=== PATIENT | male | born 1975 | race Caucasian/White ===

== ENCOUNTER 2024-12-24 15:53 | Outpatient (AMB) | payer OTHER, SELFPAY ==
--- NOTE | 2024-12-24 15:59 | A.OFFPC_ITS ---
Vital Signs 12/24/24 16:04 Height 5 ft 11.81 in Weight 241 lb 4 oz BMI 32.9 BP 182/89 H Blood Pressure Location Rt brachial Position Sitting Pulse 71 Pulse Source Pulse Oximeter Temp 97.7 F Temp Source Oral Pulse Oximetry (%) 99 Oxygen Delivery Method Room Air Intake Visit Reasons: [employer] WORK[employer]-blood pressure Accompanied by: Spouse Allergies No Known Allergies Allergy (Verified 12/24/24 15:59) Tobacco use date assessed: 12/24/24 Dental Screening Dental Screen Date: 12/24/24 Did you have a dental visit in the last 12 months?: Yes Was dental information given to patient?: Patient has dentist HPI HPI Comments History of Present Illness Details History of Present Illness The patient is a 49-year-old male presenting for management of hypertension and diabetes, and for preventative care measures. Essential Hypertension: - The patient reports elevated blood pre ssure, which runs in the family, and desires to manage it effectively. - He has been monitoring his blood press ure daily, although he was advised against taking it first thing in the morning by the ER. Hyperlipidemia: - The patient suspects elevated choleste rol levels, confirmed by a recent cholesterol reading of 252 mg/dL. Type 2 Diabetes Mellitus: - The patient was recently diagnosed wit h type 2 diabetes, with an A1c of 8.9%. - He was unaware of the significance of the A1c test and its implications for long-term glucose control. Obstructive Sleep Apnea: - Diagnosed in 2013, the patient uses a CPAP machine nightly, although it has not been serviced in over 10 years. Seasonal Affective Disorder: - The patient experiences seasonal depre ssion, particularly in winter, affecting his mood and activity levels. Carpal Tunnel Syndrome: - The patient has bilateral carpal tunne l syndrome, confirmed by EMG and NCV tests, and manages symptoms with wrist braces at night. Bursitis: - The patient reports knee pain consiste nt with bursitis, particularly when kneeling. Review of Systems - Cardiovascular: Reports elevated blood pressure. Denies chest pain or palpitations. - Endocrine: Reports elevated blood gluc ose levels. Denies polyuria or polydipsia. - Respiratory: Reports use of CPAP for s leep apnea. Denies dyspnea or cough. - Musculoskeletal: Reports knee pain whe n kneeling. Denies joint swelling or stiffness. - Neurological: Reports carpal tunnel sy ndrome symptoms at night. Denies headaches or dizziness. - Psychiatric: Reports seasonal depressi on. Denies anxiety or mood swings. 10-point ROS reviewed and negative excep t as noted in HPI Past Medical History - Hypertension - Hyperlipidemia - Type 2 Diabetes Mellitus - Obstructive Sleep Apnea - Seasonal Affective Disorder - Carpal Tunnel Syndrome - Bursitis Health Maintenance - Colon cancer screening with Cologuard recommended. - PSA testing due to family history of p rostate cancer. - Comprehensive metabolic panel, lipid p noble, and A1c testing planned. - Sleep study referral for CPAP machine evaluation. - Shingles vaccine recommended as age-ap propriate. Physical Exam General: Well-appearing, in no acute distress. Vital signs: Blood pressure elevated. HEENT: Normocephalic, atraumatic. PERRLA, EOMI. Conjunctiva clear, sclera anicteric. Oropharynx clear, mucous membranes moist. TMs intact bilaterally. Neck: Supple, no lymphadenopathy, no thyromegaly, no JVD or carotid bruits. Cardiovascular: RRR, normal S1/S2, no murmurs, rubs, or gallops. Peripheral pulses 2+ and symmetric. No edema. Respiratory: Lungs clear to auscultation bilaterally, no wheezes, rales, or rhonchi. Normal effort. Abdomen: Soft, non-tender, non-distended. Normoactive bowel sounds. No hepatosplenomegaly, no masses. MSK: Full range of motion, no joint swelling or deformity. Normal gait. Reports bursitis in the knee. Skin: Warm, dry, intact. No rashes, lesions, or pallor. Neuro: Alert and oriented x3. Cranial nerves II-XII intact. Strength 5/5 throughout. Sensation intact. Reflexes 2+ symmetric. Normal coordination and gait. Psych: Appropriate mood and affect. Normal judgment and insight. Reports seasonal depression. Plan 1. Essential Hypertension - Initiate treatment with amlodipine 10 mg daily to manage blood pressure. - Monitor blood pressure regularly and a djust medication as needed. 2. Hyperlipidemia - we will repeat labs and start medicati on was diagnosis is confirmed 3. Type 2 Diabetes Mellitus -will repeat labs and start medication o nce diagnosis is confirmed - Schedule follow-up every three months to monitor A1c and adjust treatment. 4. Obstructive Sleep Apnea - Refer to sleep medicine for CPAP machi ne evaluation and adjustment. 5. Seasonal Affective Disorder - Monitor mood changes and consider ligh t therapy or medication if symptoms worsen. 6. Carpal Tunnel Syndrome - Continue use of wrist braces at night to alleviate symptoms. 7. Bursitis - Advise on activity modification to red uce knee strain. Discussion Notes During the consultation, I discussed the management of hypertension, diabetes, and hyperlipidemia with the patient. We agreed on starting amlodipine for blood pressure control and metformin for diabetes management. I emphasized the importance of regular follow-ups and monitoring. We also discussed the need for a sleep study to evaluate the CPAP machine settings. Preventative measures, including colon cancer screening with Cologuard and PSA testing, were recommended. The patient was advised on lifestyle modifications and the importance of adherence to the treatment plan. Patient was informed and verbally consented to the use of an ambient scribefor clinic note documentation during this visit. Patient Instructions - Take amlodipine 10 mg daily as prescri bed. - Schedule and attend follow-up appointm ents every three months. - Complete the Cologuard test for colon cancer screening. - Monitor blood pressure regularly and r eport any significant changes. - Follow up with sleep medicine for CPAP evaluation. - Consider lifestyle changes to manage w eight and improve overall health. Total time spent caring for the patient today was 30 minutes. This includes time spent before the visit reviewing the chart, time spent documenting, and time spent reviewing laboratory results, diagnostic imaging, medications, performing a medically necessary evaluation, counseling on diagnoses, care coordination, ordering appropriate tests, ordering appropriate medications, review of tests performed by other providers, reporting test results with the patient. [facility] Medical History (Updated 12/24/24 @ 16:34 by To Tierney MD) Encounter for screening, unspecified Obstructive sleep apnea Obesity, class 1 Family History (Updated 12/24/24 @ 16:08 by Riya Shahid CMA) Mother Thyroid disease Afib Father HTN (hypertension) Hypercholesteremia Prostate cancer Social History Housing: House Patient Tobacco Use Status: Never used Tobacco service: No Current occupational status: employed Cognitive needs: No Hearing needs: No Vision needs: Yes (rx glasses) Questionnaire PHQ-9 Over the last 2 weeks, how often have you been bothered by any of the following problems? 1. Little interest or pleasure in doing things: not at all 2. Feeling down, depressed, or hopeless: not at all 3. Trouble falling or staying asleep, or sleeping too much: not at all 4. Feeling tired or having little energy: not at all 5. Poor appetite or overeating: not at all 6. Feeling bad about yourself - or that you are a failure or have let yourself or your family down: not at all 7. Trouble concentrating on things, such as reading the newspaper or watching television: not at all 8. Moving or speaking so slowly that other people could have noticed. Or the opposite - being so fidgety or restless that you have been moving around a lot more than usual: not at all 9. Thoughts that you would be better off or of hurting yourself in some way: not at all Total score: 0 Source: Developed by Drs. Kishan Lange, Sarah Burton, Maximiliano Casillas and colleagues, with an educational linda from [employer]. Thrive Questionnaire Date Thrive assessed: 12/24/24 I am a: Patient What is your living situation today?: I have a steady place to live Within the past 12 months, did the food you bought not last and you didn't have the money to get more?: Never true Within the past 12 months, did you worry whether your food would run out before you got money to buy more?: Never true Do you have trouble paying for medicines?: No Do you have trouble getting transportation to medical appointments?: No Do you have trouble paying your heating and electricity bill?: No Do you have trouble taking care of your child, family member or friend?: No Do you have trouble with day-to-day activities such as bathing, preparing meals, shopping, managing finances, etc.?: No Are you currently unemployed and looking for a job?: No Are you interested in more education?: No Please select the resources that you would like help with: None Currently or been in a relationship where the following occur: No concerns reported THRIVE Score: 0 AUDIT C Alcohol Use Questionnaire (AUDIT-C) 1. How often do you have a drink containing alcohol?: 2-4 times a month 2. How many drinks containing alcohol do you have on a typical day when you are drinking?: 1 or 2 3. How often do you have six or more drinks on one occasion?: Less than monthly Total Score: 3 MICHAEL-7 AMB Questionnaire MICHAEL-7 Date MICHAEL - 7 assessed: 12/24/24 Feeling nervous, anxious, or on edge: 1 = Several days Not being able to stop or control worryin = Not at all Worrying too much about different things: 1 = Several days Trouble relaxin = Several days Being so restless that it is hard to sit still: 0 = Not at all Becoming easily annoyed or irritable: 1 = Several days Feeling afraid as if something awful might happen: 0 = Not at all Total MICHAEL-7 score (0-4 normal; 5-9 mild; 10-14 moderate; 15-21 severe): 4 Source: Developed by Drs. Kishan Lange, Sarah Burton, Maximiliano Casillas and colleagues, with an educational linda from [employer]. Physical exam (Primary Care) Vital Signs: Last Vital Signs Temp 97.7 F 12/24/24 16:04 Pulse 71 12/24/24 16:04 BP 182/89 H 12/24/24 16:04 Pulse Ox 99 12/24/24 16:04 Oxygen Delivery Method Room Air 12/24/24 16:04 BMI result Body Mass Index 32.9 Tobacco/Smoking Status: Tobacco use Status Tobacco use date assessed 12/24/24 12/24/24 16:02 Patient Tobacco Use Status Never used Tobacco 12/24/24 16:02 PHQ-9: PHQ-9 Score PHQ-9: Total score 0 12/24/24 16:02 Thrive Assessment: Date of Thrive Assessment Date Thrive assessed 12/24/24 12/24/24 16:02 Currently or been in a relationship where the following occur: No concerns reported Coding Level of Care Code New Pt Level 4 (64124) Diagnoses Obstructive sleep apnea G47.33 Essential hypertension I10 Hyperlipidemia E78.5 Diabetes type 2 E11.9 Seasonal affective disorder F33.8 Carpal tunnel syndrome G56.00 Bursitis of both knees M70.51; M70.52 Encounter for colorectal cancer screening Z12.11; Z12.12 Assessment & Plan Assessment & Plan (1) Obstructive sleep apnea: Code(s): G47.33 - Obstructive sleep apnea (adult) (pediatric) Category: Medical (2) Essential hypertension: Code(s): I10 - Essential (primary) hypertension (3) Hyperlipidemia: Code(s): E78.5 - Hyperlipidemia, unspecified (4) Diabetes type 2: Code(s): E11.9 - Type 2 diabetes mellitus without complications (5) Seasonal affective disorder: Code(s): F33.8 - Other recurrent depressive disorders (6) Carpal tunnel syndrome: Code(s): G56.00 - Carpal tunnel syndrome, unspecified upper limb (7) Bursitis of both knees: Code(s): M70.51 - Other bursitis of knee, right knee; M70.52 - Other bursitis of knee, left knee (8) Encounter for colorectal cancer screening: Code(s): Z12.11 - Encounter for screening for malignant neoplasm of colon; Z12.12 - Encounter for screening for malignant neoplasm of rectum Plan Orders: Orders Hemoglobin A1c Today Z13.9 - Encounter for screening, unspecified Hepatitis B Surface Antigen Today Z13.9 - Encounter for screening, unspecified Hepatitis C Antibody Today Z13.9 - Encounter for screening, unspecified Hepatitis C Antibody Reflex Today Z13.9 - Encounter for screening, unspecified HIV Ab/Ag Today Z13.9 - Encounter for screening, unspecified Magnesium Today Z13.9 - Encounter for screening, unspecified Vitamin B12 and Folate Today Z13.9 - Encounter for screening, unspecified Complete Blood Count Auto Diff Today Z13.9 - Encounter for screening, unspecified Comprehensive Met. Panel Today Z13.9 - Encounter for screening, unspecified Hepatitis B Surface Antibody Today Z13.9 - Encounter for screening, unspecified Lipid Panel Today Z13.9 - Encounter for screening, unspecified TSH reflex Free T4 Today Z13.9 - Encounter for screening, unspecified UA CC w/rflx Micro + Cult Today Z13.9 - Encounter for screening, unspecified Vitamin D 1,25 dihydroxy Today Z13.9 - Encounter for screening, unspecified Referrals Sleep Medicine Referral G47.33 - Obstructive sleep apnea (adult) (pediatric), Z13.9 - Encounter for screening, unspecified Cologuard Test Z12.11 - Encounter for screening for malignant neoplasm of colon, Z12.12 - Encounter for screening for malignant neoplasm of rectum, Z13.9 - Encounter for screening, unspecified Medications: New amlodipine 10 mg PO DAILY 90 tabs 0RF
[2024-12-24 16:04] VITALS: BP 182/89; PULSE 71; TEMP 36.5; O2SAT 99; BMI 32.9
== END 2024-12-24 16:44 | disposition home or self-care (01) ==
LOC: HO.HMCFMS 15:54
PROVIDERS: Visit Provider Student in an Organized Health Care Education/Training Program
DX: G47.33 Obstructive sleep apnea (adult) (pediatric) (principal); I10 Essential (primary) hypertension; E78.5 Hyperlipidemia, unspecified; E11.9 Type 2 diabetes mellitus without complications; F33.8 Other recurrent depressive disorders; G56.00 Carpal tunnel syndrome, unspecified upper limb; M70.51 Other bursitis of knee, right knee; M70.52 Other bursitis of knee, left knee; Z12.11 Encounter for screening for malignant neoplasm of colon; Z12.12 Encounter for screening for malignant neoplasm of rectum

== ENCOUNTER 2025-01-01 07:48 | Outpatient (REF) | payer OTHER, SELFPAY ==
--- OUTSIDE RECORDS SUMMARY | 2025-01-01 07:50 | XMS_ITS | Clinical Summary ---
Author Organization [facility] [place] [address] Care Team Providers Care Shipper Name Role Phone Unavailable Primary Care Provider Unavailabl e Encounters Date Type Department Care Team Description 11/14/2024 Interpretation Only [address] [id number] Unknown from Last 3 Months Social History Tobacco Use Types Packs/Day Years Used Date Smoking Tobacco: Never Assessed Sex and Gender Information Value Date Recorded Sex Assigned at Not on file Legal Sex Male 11:13 AM EDT Gender Identity Not on file Sexual Orientation Not on file Plan of Treatment Health Maintenance Due Date Last Done Comments CT Colonography 1974 Colonoscopy 1974 Colorectal Cancer Screening 1974 FIT DNA 1974 FIT 1974 Sigmoidoscopy (10 year) with FIT yearly 1974 Sigmoidoscopy 1974 HIV screen 01/04/1992 Hepatitis C Screening 01/04/1992 Lipid Screening 01/04/1992 Hepatitis B vaccine (0-59 yrs) and Risk (1) 1993 Tetanus/Diphtheria/Pertussis Vaccines (1 - Tdap) 01/03 Pneumoccocal Vaccine: 50+ (1 of 1 - PCV) 01/04/2024 Zoster vaccine (1 of 2) 01/04/2024 Covid-19 Vaccine (1 - 2023- season) 2024 Influenza (Flu) vaccine (1 o f 1 - Influenza standard series) 11/16/2024 Procedures Procedure Name Priority Date/Time Associated Diagnosis Comments XR CHEST PA AND LATERAL STAT 11/14/2024 11:50 AM EDT from Last 3 Months Results * XR Chest PA & Lateral (Standard) (11/14/2024 11:50 AM EDT) PT CLASS DH RAD ADMITDTTM DH RAD PT RAD INFO [id number] ^Josh bellamy^Dheeraji^ ^^^MD^^^^^ ^NPI RAD EXAM DESC XCXR2^XR chest 2V^RIS RAD WORKSTATION ID [id number] RAD Anatomical Region Laterality Modality Chest N/A Radiographic Yessi ging 11/14/2024 11:3 0 AM EDT Impressions 11/14/2024 12:02 PM EDT No acute process. Thank you for letting us participate in the care of this patient. If you are a health care provider and have any questions regarding this report, please contact the number below. For patients who have questions please contact the health care management coordinator that requested your imaging first. Electronically signed by: Homar Villalta MD, [facility] ([phone]), at 11/14/2024 12:02 PM Narrative 11/14/2024 12:02 PM EDT EXAMINATION: XR chest 2V CLINICAL HISTORY: sob TECHNIQUE: PA and lateral views of the chest COMPARISON: None FINDINGS: Lungs are well-inflated and clear. The heart is not enlarged. No pneumothorax or pleural effusions detected. Procedure Note Homar Villalta MD - 11/14/2024 EXAMINATION: XR chest 2V CLINICAL HISTORY: sob TECHNIQUE: PA and lateral views of the chest COMPARISON: None FINDINGS: Lungs are well-inflated and clear. The heart is not enlarged. Nopneumothorax or pleural effusions detected. IMPRESSION No acute process. Thank you for letting us participate in the care of this patient. If youare a health care provider and have any questions regarding this report,please contact the number below. For patients who have questions please contactthe health care management coordinator that requested your imaging first. Electronically signed by: Homar Villalta MD, [facility]([phone]), at 11/14/2024 12:02 PM us Unknown IMG DX ORDERABLES Final Result from Last 3 Months Insurance [facility]
[2025-01-01 10:12] LABS: Appearance Urine Clear; Glucose Urine UA 100 mg/dL (Negative); PH 7.0 (5.0-9.0); Specific Gravity - Urine 1.020 (1.005-1.025)
[2025-01-01 10:28] LABS: MANUAL DIFF FLAG NO
[2025-01-01 10:47] LABS: Hematocrit 43.6 % (42.0-52.0); Hemoglobin 15.0 g/dl (14.0-18.0); Imm Gran Abs Auto 0.01 X10*3/uL (0.00-0.03); Imm Gran Pct Auto 0.2 % (0.0-0.4); Lymphocytes Absolute Auto 1.7 X10*3/uL (1.2-4.9); Mean Corpuscular HGB Conc 34.4 g/dl (31.0-36.0); Mean Corpuscular Hemoglobin 30.0 pg (27.0-33.0); Mean Corpuscular Volume 87.2 fL (80.0-98.0); NRBC Abs Auto 0.000 X10*3/uL (0.0-0.012); NRBC Pct Auto 0.0 /100WBC (0.0-0.2); Platelet Count 203 X10*3/uL (160-400); Red Blood Count 5.00 X10*6/uL (4.60-5.80); White Blood Count 5.0 X10*3/uL (4.8-10.8)
[2025-01-01 13:22] LABS: Anion Gap 11 (12-20)
[2025-01-01 13:27] LABS: Alanine Aminotransferase 31 U/L (0-40); Albumin Level 4.7 g/dL (3.5-5.0); Alkaline Phosphatase 108 U/L (39-117); Aspartate Amino Transferase 27 U/L (5-37); Blood Urea Nitrogen 18 mg/dL (9-16); Calcium 9.2 mg/dL (8.4-10.2); Carbon Dioxide 28 mmol/L (22-29); Chloride 106 mmol/L (96-108); Cholesterol 230 mg/dL (<200); Estimated Glomerular Filt Rate > 60; HDL Cholesterol 34 mg/dL (>40); Magnesium 2.2 mg/dL (1.6-2.6); Potassium 4.2 mmol/L (3.3-5.1); Sodium 141 mmol/L (135-145); Total Protein 7.2 g/dL (6.5-8.0); Triglycerides 389 mg/dL (<150)
[2025-01-01 14:06] LABS: PSA,Total (Free>4and<10) 1.67 ng/mL (0.00-4.00)
[2025-01-01 14:10] LABS: Folate 10.6 ng/mL (> or = 4.0); Vitamin B12 373 pg/mL (200-900)
[2025-01-02 09:34] LABS: HBS Num1 0.00 mIU/mL (0-7.99); HBsAGNum1 0.48 S/CO (0.00-0.99); HIV Num 1 0.06 S/CO (0.00-0.99); Hepatitis B Surface Antigen Negative (Negative); ~HepC Num1 0.06 S/CO (0.00-0.79); ~Hepatitis B Surface Antibody NONREACTIVE (Nonreactive); ~Hepatitis C Antibody Nonreactive (Nonreactive)
[2025-01-06 14:13] LABS: VITAMIN D (1,25 OH) D3 45 pg/mL; Vit D (1,25-Dihydroxy) Total 45 pg/mL (18-72); Vitamin D (1,25 OH) D2 <8 pg/mL
== END 2025-01-01 07:49 | disposition home or self-care (01) ==
LOC: HO.HMGCLDS 07:48
PROVIDERS: PCP Student in an Organized Health Care Education/Training Program; Visit Provider Student in an Organized Health Care Education/Training Program
DX: Z11.4 Encounter for screening for human immunodeficiency virus [HIV] (principal); Z13.89 Encounter for screening for other disorder; Z12.5 Encounter for screening for malignant neoplasm of prostate; Z13.1 Encounter for screening for diabetes mellitus; Z13.6 Encounter for screening for cardiovascular disorders; Z13.21 Encounter for screening for nutritional disorder; Z13.29 Encounter for screening for other suspected endocrine disorder
CPT/HCPCS: 36415; 80053; 80061; 81003; 82607; 82652; 82746; 83036; 83735; 84153; 84443; 85025; 86706; 86803; 87340; 87389

== ENCOUNTER 2025-01-07 11:16 | Outpatient (AMB) | payer OTHER, SELFPAY ==
[2025-01-07 11:19] VITALS: BP 171/89; PULSE 88; RESP 16; TEMP 36.6; O2SAT 99; BMI 34.0
--- NOTE | 2025-01-07 11:19 | A.OFFPC_ITS ---
Vital Signs 01/07/25 11:19 Height 5 ft 11.81 in Weight 249 lb 6 oz BMI 34.0 BP 171/89 H Blood Pressure Location Lt brachial Position Sitting Respiration 16 Pulse 88 Pulse Source Pulse Oximeter Temp 98 F Temp Source Oral Pulse Oximetry (%) 99 Oxygen Delivery Method Room Air Intake Visit Reasons: 2 wk f/u Accompanied by: Spouse Allergies No Known Allergies Allergy (Verified 01/07/25 11:22) Tobacco use date assessed: 01/07/25 Dental Screening Dental Screen Date: 01/07/25 Did you have a dental visit in the last 12 months?: Yes Did you have a dental problem in the last 6 months where you did not have access to dental care?: No Was dental information given to patient?: Patient has dentist HPI HPI Comments History of Present Illness Details Consent Patient was informed and verbally consented to the use of an ambient scribe for clinic note documentation during this visit. History of Present Illness The patient is a 50-year-old male presenting with elevated blood pressure and lab result review. Essential Hypertension: The patient has been experiencing elevated blood pressure, with a recent reading of 171/89 mmHg while on amlodipine 10 mg daily. He reports feeling jittery and experiencing chest tightness, which he associates with the medication. Despite adherence to the medication, his blood pressure remains uncontrolled, prompting a change in treatment. Type 2 Diabetes Mellitus: The patient has been diagnosed with type 2 diabetes mellitus, with a hemoglobin A1c of 8.7% and a random glucose level of 213 mg/dL. He has not been on any diabetes medication prior to this visit. Lifestyle factors, including a high intake of sweets, may contribute to his condition. Hyperlipidemia: The patient presents with hyperlipidemia, evidenced by triglycerides at 389 mg/dL and total cholesterol at 230 mg/dL. His LDL cholesterol is 119 mg/dL, and HDL cholesterol is 34 mg/dL. These levels indicate a risk for cardiovascular complications, necessitating intervention. Medications: - Amlodipine 10 mg daily for hypertensio n Social History: - Employment: Works in [employer] for 30 years. - Nutritional intake: High intake of swe ets, particularly donuts. Diagnostic Results: - Labs: Hemoglobin A1c 8.7%, random gluc ose 213 mg/dL, triglycerides 389 mg/dL, total cholesterol 230 mg/dL, LDL 119 mg/dL, HDL 34 mg/dL. Review of Systems - Cardiovascular: Reports chest tightnes s and jitteriness. Denies syncope. - Musculoskeletal: Reports chest pain af ter golfing. 10-point ROS reviewed and negative excep t as noted in HPI Past Medical History Health Maintenance - Diabetes management: Initiation of met formin and lifestyle modifications discussed. - Lipid management: Stevenson-3 supplementat ion and lipid-lowering medication planned. Physical Exam General: Well-appearing, in no acute distress. Vital signs: Blood pressure elevated at 171/89. HEENT: Normocephalic, atraumatic. PERRLA, EOMI. Conjunctiva clear, sclera anicteric. Oropharynx clear, mucous membranes moist. TMs intact bilaterally. Neck: Supple, no lymphadenopathy, no thyromegaly, no JVD or carotid bruits. Cardiovascular: RRR, normal S1/S2, no murmurs, rubs, or gallops. Peripheral pulses 2+ and symmetric. No edema noted, but patient reports swelling in ankles. Respiratory: Lungs clear to auscultation bilaterally, no wheezes, rales, or rhonchi. Normal effort. Abdomen: Soft, non-tender, non-distended. Normoactive bowel sounds. No hepatosplenomegaly, no masses. MSK: Full range of motion, no joint swelling or deformity. Normal gait. Skin: Warm, dry, intact. No rashes, lesions, or pallor. Neuro: Alert and oriented x3. Cranial nerves II-XII intact. Strength 5/5 throughout. Sensation intact. Reflexes 2+ symmetric. Normal coordination and gait. Psych: Appropriate mood and affect. Normal judgment and insight. Plan 1. Essential Hypertension - Discontinue amlodipine due to side eff ects and inadequate control. - Initiate a two-in-one combination anti hypertensive therapy. 2. Type 2 Diabetes Mellitus - Start metformin, one tablet in the mor mauri and one at night. - Refer to a progressive care unit registered nurse and di abetic educator for lifestyle management. 3. Hyperlipidemia - Prescribe omega-3 supplements, two cap sules in the morning and two at night. - Initiate lipid-lowering medication for cardiovascular protection. Discussion Notes I discussed with the patient the diagnosis of type 2 diabetes mellitus and the importance of starting metformin as the first-line treatment. We reviewed the potential side effects and the need for lifestyle changes, including dietary modifications and regular follow-ups. I also explained the need to discontinue amlodipine due to side effects and switch to a combination antihypertensive therapy. The patient was informed about the risks associated with hyperlipidemia and the plan to start omega-3 supplements and a lipid-lowering medication. Follow-up appointments were scheduled to monitor the effectiveness of the new treatments and adjust as necessary. Patient Instructions - Take metformin as prescribed, one tabl et in the morning and one at night. start semaglutide 0.25 - Monitor blood pressure at home and rep ort any side effects. stop amlodipine and start lisinopril hydrochlorothiazide - Follow dietary recommendations provide d by the coke wheeler. - Take omega-3 supplements as directed, two capsules in the morning and two at night. - Attend follow-up appointments as sched uled. Medical Decision Making The patient's elevated blood pressure and side effects from amlodipine necessitated a change in antihypertensive therapy to a combination treatment for better control. The diagnosis of type 2 diabetes mellitus was confirmed with an A1c of 8.7%, prompting the initiation of metformin and lifestyle interventions. Hyperlipidemia was addressed with omega-3 supplements and a lipid-lowering medication to reduce cardiovascular risk. The plan includes close monitoring and follow-up to assess treatment efficacy and adjust as needed. Total time spent caring for the patient today was 30 minutes. This includes time spent before the visit reviewing the chart, time spent documenting, and time spent reviewing laboratory results, diagnostic imaging, medications, performing a medically necessary evaluation, counseling on diagnoses, care coordination [facility] Medical History (Updated 01/07/25 @ 12:06 by To Tierney MD) Diabetes type 2 Hyperlipidemia Hypertriglyceridemia Encounter for screening, unspecified Obstructive sleep apnea Obesity, class 1 Family History Mother Thyroid disease Afib Father HTN (hypertension) Hypercholesteremia Prostate cancer Social History Housing: House Patient Tobacco Use Status: Never used Tobacco service: No Current occupational status: employed Cognitive needs: No Hearing needs: No Vision needs: Yes (rx glasses) Questionnaire Thrive Questionnaire Date Thrive assessed: 12/23/24 I am a: Patient What is your living situation today?: I have a steady place to live Within the past 12 months, did the food you bought not last and you didn't have the money to get more?: Never true Within the past 12 months, did you worry whether your food would run out before you got money to buy more?: Never true Do you have trouble paying for medicines?: No Do you have trouble getting transportation to medical appointments?: No Do you have trouble paying your heating and electricity bill?: No Do you have trouble taking care of your child, family member or friend?: No Do you have trouble with day-to-day activities such as bathing, preparing meals, shopping, managing finances, etc.?: No Are you currently unemployed and looking for a job?: No Are you interested in more education?: No Please select the resources that you would like help with: None Currently or been in a relationship where the following occur: No concerns reported THRIVE Score: 0 MICHAEL-7 AMB Questionnaire MICHAEL-7 Date MICHAEL - 7 assessed: 12/24/24 Source: Developed by Drs. Kishan Lange, Sarah Burton, Maximiliano Casillas and colleagues, with an educational linda from [address]. Physical exam (Primary Care) Vital Signs: Last Vital Signs Temp 98 F 01/07/25 11:19 Pulse 88 01/07/25 11:19 Resp 16 01/07/25 11:19 BP 171/89 H 01/07/25 11:19 Pulse Ox 99 01/07/25 11:19 Oxygen Delivery Method Room Air 01/07/25 11:19 BMI result Body Mass Index 34.0 Tobacco/Smoking Status: Tobacco use Status Tobacco use date assessed 01/07/25 01/07/25 11:20 Patient Tobacco Use Status Never used Tobacco 01/07/25 11:20 Thrive Assessment: Date of Thrive Assessment Date Thrive assessed 12/23/24 01/07/25 11:20 Currently or been in a relationship where the following occur: No concerns reported Coding Level of Care Code Est Pt Level 4 (76137) Diagnoses Hypertriglyceridemia E78.1 Primary hypertension I10 Hyperlipidemia E78.5 Type 2 diabetes mellitus E11.9 Class 1 obesity E66.9 Elevated blood pressure reading R03.0 Assessment & Plan Assessment & Plan (1) Hypertriglyceridemia: Code(s): E78.1 - Pure hyperglyceridemia Category: Medical (2) Primary hypertension: Code(s): I10 - Essential (primary) hypertension (3) Hyperlipidemia: Code(s): E78.5 - Hyperlipidemia, unspecified (4) Type 2 diabetes mellitus: Code(s): E11.9 - Type 2 diabetes mellitus without complications (5) Class 1 obesity: Code(s): E66.9 - Obesity, unspecified (6) Elevated blood pressure reading: Code(s): R03.0 - Elevated blood-pressure reading, without diagnosis of hypertension Plan Orders: Referrals Nurse Navigator Referral E11.9 - Type 2 diabetes mellitus without complications Nutrition/Dietitian Referral E11.9 - Type 2 diabetes mellitus without complications Medications: New icosapent ethyl 2 grams (2 x 1 gram) PO BID 360 caps 0RF E78.1 - Pure hyperglyceridemia, E78.5 - Hyperlipidemia, unspecified atorvastatin (Lipitor) 20 mg PO BEDTIME 90 tabs 0RF semaglutide (Ozempic) for 4 weeks 0.25 mg (0.368 mL) subcut QWEEK 3 mL 3RF E11.9 - Type 2 diabetes mellitus without complications lisinopril-hydrochlorothiazide 20-12.5 mg 1 tab PO DAILY 30 tabs 0RF metformin 1,000 mg PO BID 180 tabs 0RF Discontinued amlodipine Discontinued Reason: Doctor's Order 10 mg PO DAILY 90 tabs 0RF
--- OUTSIDE RECORDS SUMMARY | 2025-01-07 14:19 | XMS_ITS | Clinical Summary ---
Author Organization [facility] [place] [address] Care Team Providers Care Auto Design Detailer Name Role Phone Unavailable Primary Care Provider Unavailabl e Encounters Date Type Department Care Team Description 11/14/2024 Interpretation Only [address] [id number] Unknown from Last 3 Months [...] RAD ADMITDTTM DH RAD PT RAD INFO [id number] ^Josh bellamy^Dheeraji^ ^^^MD^^^^^ ^NPI RAD EXAM DESC XCXR2^XR chest 2V^RIS RAD WORKSTATION ID [id number] RAD Anatomical Region Laterality Modality Chest N/A Radiographic Yessi ging 11/14/2024 11:3 0 AM EDT Impressions 11/14/2024 12:02 PM EDT No acute process. Thank you for letting us participate in the care of this patient. If you are a health care provider and have any questions regarding this report, please contact the number below. For patients who have questions please contact the health home health care respiratory therapist that requested your imaging first. Electronically signed by: Homar Villalta MD, [facility] ([phone]), at 11/14/2024 12:02 PM Narrative 11/14/2024 12:02 [...] patients who have questions please contactthe health home health care respiratory therapist that requested your imaging first. Electronically signed by: Homar Villalta MD, [facility]([phone]), at 11/14/2024 12:02 PM us Unknown IMG DX ORDERABLES Final Result from Last 3 Months Insurance [facility]
== END 2025-01-07 11:49 | disposition home or self-care (01) ==
LOC: HO.HMCFMS 11:16
PROVIDERS: PCP Student in an Organized Health Care Education/Training Program; Visit Provider Student in an Organized Health Care Education/Training Program
DX: E78.1 Pure hyperglyceridemia (principal); I10 Essential (primary) hypertension; E78.5 Hyperlipidemia, unspecified; E11.9 Type 2 diabetes mellitus without complications; E66.9 Obesity, unspecified; R03.0 Elevated blood-pressure reading, without diagnosis of hypertension

== ENCOUNTER 2025-01-21 11:27 | Outpatient (AMB) | payer OTHER, SELFPAY ==
--- NOTE | 2025-01-21 11:29 | A.OFFPC_ITS ---
Vital Signs 01/21/25 11:30 Height 5 ft 11.81 in Weight 241 lb 4 oz BMI 32.9 BP 131/82 Blood Pressure Location Lt brachial Position Sitting Respiration 16 Pulse 78 Pulse Source Pulse Oximeter Temp 98.1 F Temp Source Oral Pulse Oximetry (%) 97 Oxygen Delivery Method Room Air Intake Visit Reasons: 2 week follow up Allergies No Known Allergies Allergy (Verified 01/21/25 11:31) Medication List - Last Reconciled 01/21/25 by To Tierney MD atorvastatin (Lipitor) 20 mg PO BEDTIME icosapent ethyl 2 grams (2 x 1 gram) PO BID lisinopril-hydrochlorothiazide 20-12.5 mg 1 tab PO DAILY metformin 1,000 mg PO BID omega-3 acid ethyl esters 2 caps PO BID semaglutide (Ozempic) 0.25 mg (0.368 mL) subcut QWEEK Tobacco use date assessed: 01/07/25 Dental Screening Dental Screen Date: 01/07/25 HPI HPI Comments History of Present Illness Details History of Present Illness The patient is a 50-year-old male presenting for medication management. Hypertension: The patient is on lisinopril hydrochlorothiazide combo 20 mg/12.5 mg for hypertension, which he reports is working effectively. He is adjusting to the medication without any mentioned complaints. He notes feeling some initial weird waves that have since subsided. His blood pressure ranges within acceptable range we will continue with current medication Type 2 diabetes The patient has been prescribed Ozempic but had not initiated treatment due to insurance issues. He has now obtained the medication and picked it up yesterday. He is currently taking metformin a 1000 mg b.i.d. Medications: Lisinopril hydrochlorothiazide 20-12.5 mg Metformin a 1000 mg b.i.d. [place] 3 acid ethyl esters Semaglutide 0.25 mg Atorvastatin 20 mg Diagnostic Results: Home blood pressures are within normal range Past Medical History - Hypertension Health Maintenance - Medication education: Received instruc tion on how to find a video guide for Ozempic administration. [facility] Medical History (Updated 01/07/25 @ 12:06 by To Tierney MD) Diabetes type 2 Hyperlipidemia Hypertriglyceridemia Encounter for screening, unspecified Obstructive sleep apnea Obesity, class 1 Family History Mother Thyroid disease Afib Father HTN (hypertension) Hypercholesteremia Prostate cancer Social History Housing: House Patient Tobacco Use Status: Never used Tobacco service: No Current occupational status: employed Cognitive needs: No Hearing needs: No Vision needs: Yes (rx glasses) Questionnaire Thrive Questionnaire Date Thrive assessed: 12/23/24 I am a: Patient What is your living situation today?: I have a steady place to live Within the past 12 months, did the food you bought not last and you didn't have the money to get more?: Never true Within the past 12 months, did you worry whether your food would run out before you got money to buy more?: Never true Do you have trouble paying for medicines?: No Do you have trouble getting transportation to medical appointments?: No Do you have trouble paying your heating and electricity bill?: No Do you have trouble taking care of your child, family member or friend?: No Do you have trouble with day-to-day activities such as bathing, preparing meals, shopping, managing finances, etc.?: No Are you currently unemployed and looking for a job?: No Are you interested in more education?: No Please select the resources that you would like help with: None Currently or been in a relationship where the following occur: No concerns reported THRIVE Score: 0 MICHAEL-7 AMB Questionnaire MICHAEL-7 Date MICHAEL - 7 assessed: 12/24/24 Source: Developed by Drs. Kishan Lange, Sarah Burton, Maximiliano Casillas and colleagues, with an educational linda from [employer]. Review of Systems Narrative Review of Systems - General: Reports experiencing some weird waves which have now subsided. 10-point ROS reviewed and negative except as noted in HPI Physical exam (Primary Care) Vital Signs: Last Vital Signs Temp 98.1 F 01/21/25 11:30 Pulse 78 01/21/25 11:30 Resp 16 01/21/25 11:30 BP 131/82 01/21/25 11:30 Pulse Ox 97 01/21/25 11:30 Oxygen Delivery Method Room Air 01/21/25 11:30 BMI result Body Mass Index 32.9 Tobacco/Smoking Status: Tobacco use Status Tobacco use date assessed 01/07/25 01/21/25 11:38 Patient Tobacco Use Status Never used Tobacco 01/21/25 11:38 Thrive Assessment: Date of Thrive Assessment Date Thrive assessed 12/23/24 01/21/25 11:38 Currently or been in a relationship where the following occur: No concerns reported Narrative Physical Exam General: Well-appearing, in no acute distress. Vital signs: Blood pressure looks great. HEENT: Normocephalic, atraumatic. PERRLA, EOMI. Conjunctiva clear, sclera anicteric. Oropharynx clear, mucous membranes moist. TMs intact bilaterally. Neck: Supple, no lymphadenopathy, no thyromegaly, no JVD or carotid bruits. Cardiovascular: RRR, normal S1/S2, no murmurs, rubs, or gallops. Peripheral pulses 2+ and symmetric. No edema. Respiratory: Lungs clear to auscultation bilaterally, no wheezes, rales, or rhonchi. Normal effort. Abdomen: Soft, non-tender, non-distended. Normoactive bowel sounds. No hepatosplenomegaly, no masses. MSK: Full range of motion, no joint swelling or deformity. Normal gait. Skin: Warm, dry, intact. No rashes, lesions, or pallor. Neuro: Alert and oriented x3. Cranial nerves II-XII intact. Strength 5/5 throughout. Sensation intact. Reflexes 2+ symmetric. Normal coordination and gait. Psych: Appropriate mood and affect. Normal judgment and insight. Coding Level of Care Code Est Pt Level 3 (96790) Diagnoses Hypertriglyceridemia E78.1 Primary hypertension I10 Hyperlipidemia E78.5 Type 2 diabetes mellitus E11.9 Class 1 obesity E66.9 Assessment & Plan Assessment & Plan (1) Hypertriglyceridemia: Code(s): E78.1 - Pure hyperglyceridemia Category: Medical (2) Primary hypertension: Code(s): I10 - Essential (primary) hypertension (3) Hyperlipidemia: Code(s): E78.5 - Hyperlipidemia, unspecified (4) Type 2 diabetes mellitus: Code(s): E11.9 - Type 2 diabetes mellitus without complications (5) Class 1 obesity: Code(s): E66.9 - Obesity, unspecified Plan Consent Patient was informed and verbally consented to the use of an ambient scribe for clinic note documentation during this visit. Plan 1. Hypertension - The patient's blood pressure is well-controlled. - Continue current antihypertensive medication. 2. Type 2 diabetes - The patient has obtained his Ozempic prescription. - The patient requested a reminder on how to use the medication. - Advised the patient to watch an online video for instructions on how to use the Ozempic pen. Discussion Notes I confirmed with the patient that his blood pressure medication is working well and his readings are great. We discussed that he has now obtained his Ozempic prescription and I advised him to search for an instructional video online to review how to properly administer it. Patient Instructions - Continue taking your blood pressure medication as prescribed. - You can start taking your new medication, Ozempic. - Please search online for a video on how to use Ozempic to guide you on how to administer the injection. Medical Decision Making The patient's hypertension is well-controlled on his current medication, with a reported great blood pressure reading. Therefore, the plan is to continue the current regimen. The patient is ready to initiate Ozempic after resolving an insurance delay and requested a refresher on administration. To ensure proper use, the patient was directed to an online video tutorial for guidance. Total time spent caring for the patient today was 20 minutes. This includes time spent before the visit reviewing the chart, time spent documenting, and time spent reviewing laboratory results, diagnostic imaging, medications, performing a medically necessary evaluation, counseling on diagnoses, care coordination.
[2025-01-21 11:30] VITALS: BP 131/82; PULSE 78; RESP 16; TEMP 36.7; O2SAT 97; BMI 32.9
--- OUTSIDE RECORDS SUMMARY | 2025-01-21 14:22 | XMS_ITS | Clinical Summary ---
Author Organization [facility] [place] [address] Care Team Providers Care Clinical Administrative Coordinator Name Role Phone Unavailable Primary Care Provider Unavailabl e Encounters Date Type Department Care Team Description 11/14/2024 Interpretation Only [address] [phone] Unknown from Last 3 Months [...] of 2) 01/04/2024 Covid-19 Vaccine (1 - season) 2024 Influenza (Flu) vaccine (1 o f 1 - Influenza standard series) 11/16/2024 Procedures Procedure Name Priority Date/Time Associated Diagnosis Comments XR CHEST PA AND LATERAL STAT 11/14/2024 11:50 AM EDT from Last 3 Months Results * XR Chest PA & Lateral (Standard) (11/14/2024 11:50 AM EDT) PT CLASS DH RAD ADMITDTTM DH RAD PT RAD INFO [id number] ^Josh bellamy^Dheeraji^ ^^^MD^^^^^ ^NPI RAD EXAM DESC XCXR2^XR chest 2V^RIS RAD WORKSTATION ID [id number] RAD Anatomical Region Laterality Modality Chest N/A [...] have questions please contact the health care provider that requested your imaging first. Narrative 11/14/2024 12:02 PM EDT EXAMINATION: XR [...] who have questions please contactthe health care provider that requested your imaging first. us Unknown IMG DX ORDERABLES Final Result from Last 3 Months Insurance [facility]
== END 2025-01-21 12:02 | disposition home or self-care (01) ==
LOC: HO.HMCFMS 11:28
PROVIDERS: PCP Family Medicine; Visit Provider Student in an Organized Health Care Education/Training Program
DX: E78.1 Pure hyperglyceridemia (principal); I10 Essential (primary) hypertension; E78.5 Hyperlipidemia, unspecified; E11.9 Type 2 diabetes mellitus without complications; E66.9 Obesity, unspecified

== ENCOUNTER 2025-02-01 13:17 | Outpatient (AMB) | payer OTHER, SELFPAY ==
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
[2025-02-01 13:42] VITALS: BP 130/82; PULSE 76; O2SAT 98; BMI 33.7
== END 2025-02-01 14:32 | disposition home or self-care (01) ==
LOC: HO.HSMS 13:18
PROVIDERS: Visit Provider Physician Assistant Medical
DX: G47.19 Other hypersomnia (principal); G56.03 Carpal tunnel syndrome, bilateral upper limbs; R20.0 Anesthesia of skin; R20.2 Paresthesia of skin
CPT/HCPCS: 99204

== ENCOUNTER → 2025-03-16 12:43 | Outpatient (REF) | payer OTHER, SELFPAY ==
--- OUTSIDE RECORDS SUMMARY | 2025-03-16 16:38 | XMS_ITS | Clinical Summary ---
Author Organization [facility] Address [facility] [place] [address] Care Team Providers Care Metrology Technician Name Role Phone Unavailable Primary Care Provider Unavailabl e Social History Tobacco Use Types Packs/Day Years [...] of 2) 01/04/2024 Covid-19 Vaccine (1 - 2024- season) 2024 Influenza (Flu) vaccine (1 o f 1 - Influenza standard series) 11/16/2024 Insurance
== END ==
LOC: HO.SL 12:43
PROVIDERS: PCP Student in an Organized Health Care Education/Training Program; Visit Provider Physician Assistant Medical
DX: G47.19 Other hypersomnia (principal)
CPT/HCPCS: 95806